=== PATIENT | male | born 1995 | race Caucasian/White ===

== ENCOUNTER 2021-08-29 16:01 | Emergency (ER) | payer BC, SELFPAY ==
[2021-08-29 16:28] VITALS: BP 141/76; PULSE 103; RESP 18; TEMP 36.7; O2SAT 97; BMI 29.0
--- NOTE | 2021-08-29 18:43 | ED.SKABFB ---
HPI - Skin/Abscess/Foreign Bdy General Chief complaint: Skin/Abscess/Foreign Body Stated complaint: CUT ABOVE ANUS ABSCESS FEVER Time Seen by Provider: 08/29/21 18:28 Source: patient Mode of arrival: Ambulatory Limitations: no limitations History of Present Illness HPI narrative: Patient is a 25-year-old male history hypertension depression presenting today with rectal bleeding. He says for the last 3 days he has actually had body aches fevers and chills. He has noticed some pain between his buttocks. He has been doing hot baths. He today he did hot bath and suddenly there was blood. He actually feels a little bit better but is worried that there may be infection. He says that he has had recurrence of something similar like this a few times but it has never been this bad. He actually does not have any blood in his stool. There is just a small area above the anus that is painful pain Related Data Previous Rx's Medication Instructions Recorded amoxicillin 875 mg-potassium 1 tab PO BID #20 tabs 08/29/21 clavulanate 125 mg tablet Allergies Allergy/AdvReac Type Severity Reaction Status Date / Time ketamine Allergy Verified 08/29/21 16:36 Review of Systems Review of Systems Narrative: GENERAL: Denies chills, fatigue, malaise, fever, sweats, travel HEENT: Denies sinus pain, ear pain, sore throat, difficulty swallowing, neck pain RESPIRATORY: Denies dyspnea, cough, wheezing, hemoptysis, sputum. CARDIOVASCULAR: Denies chest pain, palpitations, orthopnea, edema GASTROINTESTINAL: Denies nausea, vomiting, abdominal pain, diarrhea, constipation, melena. : Denies dysuria, frequency, incontinence, hematuria, urinary retention, flank pain. MUSCULOSKELETAL: Denies weakness, joint pain, or bony pain SKIN: See HPI NEUROLOGIC: Denies weakness, dizziness, headache, numbness, change in speech, confusion PSYCHIATRIC: No concerning psychosocial issues. 12 point review of systems is negative except for those stated above and HPI Patient History Social History Smoking Status: Former smoker Smoking Status: Former smoker alcohol intake frequency: holidays/special occasions only Substance Use Type: does not use Exam Initial Vital Signs Initial Vital Signs: Vital Signs Temperature 98.1 F 08/29/21 16:28 Pulse Rate 103 H 08/29/21 16:28 Respiratory Rate 18 08/29/21 16:28 Blood Pressure 141/76 H 08/29/21 16:28 Pulse Oximetry 97 08/29/21 16:28 Oxygen Delivery Method 08/29/21 16:28 GENERAL: Well-appearing, well-nourished and in no acute distress. CARDIOVASCULAR: peripheral pulses in tact, cap refill <2 sec RESPIRATORY: No respiratory distress, speaks in full sentences without difficulty EXTREMITIES: Normal range of motion, no clubbing or edema. Neurovascularly intact NEUROLOGICAL: Cranial nerves II through XII grossly intact. Normal gait and speech. SKIN: Very small open area that is draining blood like discharge. There is actually no erythema no induration no abscess it is on the left side. It is not all pilonidal cyst. Course Orders Ordered: ED Orders 08/29/21 18:57 Wound Culture and Gram Stain Stat Vital Signs Vital signs: Vital Signs - 8 hr 08/29/21 16:28 Temperature 98.1 F Pulse Rate 103 H Respiratory Rate 18 Blood Pressure 141/76 H Pulse Oximetry 97 Oxygen Delivery Method Room Air MDM - Skin/Abscess/Foreign Bdy MDM Narrative Medical decision making narrative: Patient has some obvious gross drainage without obvious abscess. Although based on history I suspect he did have some for abscess or cyst and a recently ruptured in the bathtub. He is feeling significantly better. Vitals are pretty stable. I do recommend he have further evaluation the seems to be a reoccurring thing for him. Possible fistula. Patient overall appears very well. No sign of sepsis Discharge Plan Departure Patient Disposition: Home Clinical Impression: Abscess of skin or subcutaneous tissue Instructions: DI for Skin Abscess Activity Restrictions/Additional Instructions: *You have been diagnosed with abscess, possible reoccurring cyst *What to do: At this time actually looks good but there is obvious drainage. A bleeding and wound should heal. I do recommend colonoscopy or evaluation with recurrent infections in the exact same area. *Continue to take medications as directed Augmentin 875 mg twice a day for 10 days *Follow up with your primary care provider in 2-3 days or call [phone] *Return to ER if you should have increased pain redness fever chills or any new, worsening or concerning symptoms Prescriptions: New amoxicillin-pot clavulanate 875-125 mg tablet 1 tab PO BID Qty: 20 0RF
--- NOTE | 2021-08-29 19:18 | PC.NURSE ---
Assessed and treated by Dr Bustillos without RN involvement.
== END 2021-08-29 19:19 | disposition home or self-care (01) ==
PROVIDERS: Emergency Provider Emergency Medicine; Family Provider Nurse Practitioner
DX: L02.31 Cutaneous abscess of buttock (principal)
CPT/HCPCS: 87070; 87075; 87077; 87147; 87186; 87205; 99281; 99282